=== PATIENT | male | born 1965 | race Caucasian/White ===

== ENCOUNTER 2019-08-14 08:03 | Outpatient (CLI) | payer OTHER, SELFPAY ==
--- NOTE | 2019-08-14 08:07 | MR_ITS ---
WS: [id number] MRI HEAD WITH CONTRAST TECHNIQUE: Sagittal T1, T2 axial, T2 axial FLAIR, axial susceptibility weighted imaging, axial diffus ion weighted images, and coronal T2 images were obtained. Pre and post-T1 axial and post T1 coronal i mages. ADC and FSPGR images. CLINICAL INFORMATION: DIPLOPIA;MIGRAINES COMPARISON: None. FINDINGS: No evidence of restricted diffusion to indicate acute ischemia. Ventricular system and basal cisterns are patent. Mild small vessel changes. Mild parenchymal volume loss. Normal posterior fossa. Normal vascular flow voids at the skull base. Paranasal sinuses and mastoid a ir cells well aerated. Mild mucosal thickening ethmoid air cells. Mastoid air cells are well aerated. Normal optic chiasm and pituitary infundibulum. Mild symmetric atrophy involving the temporal lobes and hippocampal formations. No asymmetric hippocampal atrophy. No abnormal gadolinium enhancement. No hemosiderin on susceptibly weighted images. Normal visualized dural venous sinuses. No abnormal intracranial enhancement. MR/MR head wo/w con [id number] IMPRESSION: 1. No evidence of restricted diffusion to suggest acute ischemia. 2. Mild small vessel changes with moderate parenchymal volume loss. 3. No abnormal intracranial enhancement. 4. Normal optic chiasm and pituitary infundibulum. 5. Visualized globes and orbits are normal in appearance.
== END 2019-08-14 08:04 | disposition home or self-care (01) ==
LOC: RADSHAW 08:06
PROVIDERS: PCP Family Medicine; Visit Provider Ophthalmology
DX: H53.2 Diplopia (principal); G43.909 Migraine, unspecified, not intractable, without status migrainosus
CPT/HCPCS: 70553; A9579